=== PATIENT | female | born 1975 | race Caucasian/White ===

== ENCOUNTER 2016-05-17 05:39 | Day surgery (SDC) | payer OTHER ==
[~2016-05-17] VITALS: Ht 152.4 cm; Wt 71.5 kg
[2016-05-17 07:31] VITALS: BP 110/69; PULSE 83; RESP 12
[2016-05-17] MEDS ORDERED: FENTAnyl 50 MCG/ML VIAL ONE (07:47)
[2016-05-17] MEDS ORDERED: MIDAZOLAM 1 MG/ML 2 ML INJ ONE (07:47)
[2016-05-17 08:10] VITALS: BP 113/75; PULSE 78; RESP 18
[2016-05-17 08:23] VITALS: BP 119/77; PULSE 88; RESP 18
--- NOTE | 2016-05-17 11:41 | GILP ---
DATE OF PROCEDURE: PREOPERATIVE DIAGNOSES: 1. Abdominal pain. 2. Chronic heartburn. POSTOPERATIVE DIAGNOSES: 1. Gastroesophageal reflux disease. 2. Gastritis with erosions. 3. Gastric mucosal biopsies were taken for Helicobacter pylori test. INDICATION FOR THE PROCEDURE: Ms. Herbie Muro is a 40-year-old female patient who had uppe r abdominal pain and chronic heartburn, not responding to therapy. The patient was scheduled for en doscopic examination for further evaluation. The procedure and possible complications were well explained to the patient. The patient understood and consented to the procedure. DESCRIPTION OF PROCEDURE: Under the influence of fentanyl and Versed, the gastroscope was carefully introduced into the esophagus and under direct vision, it was advanced to the stomach and through t he pylorus into the duodenal bulb and descending duodenum. FINDINGS: ESOPHAGUS: The patient had gastroesophageal reflux disease. STOMACH: She had gastritis with erosions. Gastric mucosal biopsies were taken for H. pylori test. DUODENUM: Normal. She tolerated the procedure very well and there was no complication from the procedure. At the end of the procedure, she was awake with stable vital signs and she was discharged home to the care of h family. IMPRESSION: 1. Gastroesophageal reflux disease. 2. Gastritis with erosions. 3. Gastric mucosal biopsies were taken for Helicobacter pylori test. PLAN: 1. Pantoprazole 40 mg p.o. q.a.m. 2. Await H. pylori test report. Dictated By: ARNAUD DAWN/MARGO Conf#: [id number] DID#: [id number]
== END 2016-05-17 08:30 | disposition home or self-care (01) ==
LOC: GIL 05:39
PROVIDERS: ATTEND Internal Medicine Gastroenterology
DX: K21.9 Gastro-esophageal reflux disease without esophagitis (principal); K29.70 Gastritis, unspecified, without bleeding
CPT/HCPCS: 43239; J2250; J3010; Z7610